=== PATIENT | female | born 1985 | race Caucasian/White ===

== ENCOUNTER 2022-11-29 00:17 | Observation (INO) | payer MEDICAID, OTHER ==
[~2022-11-29] VITALS: Ht 152.4 cm; Wt 58.5 kg
[2022-11-29] MEDS ORDERED: FOLI0.4T6 PO (01:04)
[2022-11-29] MEDS ORDERED: CALC-1042 PO (01:04)
[2022-11-29] MEDS ORDERED: FERR-71 PO (01:04)
[2022-11-29] MEDS ORDERED: PREN-176 PO (01:04)
== END 2022-11-29 03:45 | disposition home or self-care (01) ==
LOC: 8 EST LDRP 00:17
PROVIDERS: ADMIT Obstetrics & Gynecology; ATTEND Obstetrics & Gynecology
DX: O46.92 Antepartum hemorrhage, unspecified, second trimester (principal); Z3A.20 20 weeks gestation of pregnancy
CPT/HCPCS: 59025; 76805; 76817; G0378; 99281